=== PATIENT | female | born 1980 ===

== ENCOUNTER 2017-06-09 13:02 | Emergency (ER) | payer BC ==
--- NOTE | 2017-06-09 14:32 | UC ---
Back Pain HPI - HPI Summary HPI Summary: 37 YEAR OLD FEMALE PRESENTS WITH COMPLAINS OF LOWER BACK PAIN SIMILAR TO HER SCIATIC PAIN. - History of Current Complaint Chief Complaint: UCBackPain Stated Complaint: back pain Time Seen by Provider: 06/09/17 14:31 Hx Last Menstrual Period: bcp Onset/Duration: Sudden Onset Severity Initially: Moderate Severity Currently: Moderate Pain Scale Used: 0-10 Numeric - 5 Character: Sharp Aggravating: Movement - Allergies/Home Medications Allergies/Adverse Reactions: Allergies Allergy/AdvReac Type Severity Reaction Status Date / Time Fentanyl Allergy Hives Verified 06/09/17 13:05 Home Medications: Home Medications Citalopram TAB* [Celexa TAB*] 40 mg PO BEDTIME 06/09/17 [History Confirmed 06/09] Drospirenone-Ethinyl Estradiol [Beyaz 3-0.02-0.451 mg] 1 tab PO DAILY 06/09/17 [ History Confirmed 06/09/17] PMH/Surg Hx/FS Hx/Imm Hx Previously Healthy: Yes - Surgical History Surgical History: Yes Surgery Procedure, Year, and Place: endometriosis,cyst - Family History Known Family History: Positive: None - Social History Alcohol Use: None Substance Use Type: None Smoking Status (MU): Never Smoked Tobacco Review of Systems Constitutional: Negative Skin: Negative Eyes: Negative ENT: Negative Respiratory: Negative Cardiovascular: Negative Gastrointestinal: Negative Genitourinary: Negative Motor: Negative Neurovascular: Negative Musculoskeletal: Myalgia, Other: - BACK PAIN Neurological: Negative Psychological: Negative All Other Systems Reviewed And Are Negative: Yes Physical Exam Triage Information Reviewed: Yes Vital Signs: Initial Vital Signs Temp 36.6 C 06/09/17 13:07 Pulse 86 06/09/17 13:07 Resp 16 06/09/17 13:07 BP 171/99 06/09/17 13:07 Pulse Ox 100 06/09/17 13:07 Vital Signs Reviewed: Yes Eye Exam: Normal ENT Exam: Normal Dental Exam: Normal Neck exam: Normal Neck: Positive: 1 Respiratory Exam: Normal Cardiovascular Exam: Normal Abdominal Exam: Normal Musculoskeletal: Positive: Other: - BACK PAIN Neurological Exam: Normal Psychological Exam: Normal Skin Exam: Normal Back Pain Course/Dx - Differential Dx/Diagnosis Provider Diagnoses: LOWER BACK PAIN Discharge - Discharge Plan Condition: Stable Disposition: HOME Prescriptions: Cyclobenzaprine TAB* [Flexeril 10 MG TAB*] 10 mg PO BEDTIME PRN #30 tab PRN Reason: Spasms - Back Meloxicam [Mobic] 7.5 mg PO BID #30 tab Patient Education Materials: Sacroiliitis (ED), Muscle Spasm (ED), Core Strengthening Exercises (ED) Referrals: No Primary Care Phys,NOPCP [Primary Care Provider] -
== END 2017-06-09 14:48 | disposition home or self-care (01) ==
LOC: UCEAST 13:02
DX: M54.5 Low back pain (principal)
CPT/HCPCS: 99201; G0463